=== PATIENT | male | born 1970 | race Caucasian/White ===

== ENCOUNTER 2020-07-10 20:35 | Emergency (ER) | payer BC ==
[~2020-07-10] VITALS: Ht 172.7 cm; Wt 84.8 kg
[2020-07-10 20:45] VITALS: BP_SYST 148
--- NOTE | 2020-07-10 20:57 | NUR ---
Patient to ER bed 8 to gown for evaluation. Side rails up.
--- NOTE | 2020-07-10 20:59 | NUR ---
Patient came to ER with family. C/O Epigastric pain x today. Patient states " abdominal pain since today around 1500 OM, no nausea, vomitting." Hx None A/O,X4,Epigastric pain, pain rate 2/10, vss.
--- NOTE | 2020-07-10 21:04 | NUR ---
ER at bedside examining patient.
[2020-07-10] MEDS ORDERED: NACL 0.9% 1,000 ML IV ONE (21:08)
[2020-07-10] MEDS ORDERED: PANTOPRAZOLE SODIUM 40 MG/VIAL (PROTONIX) IVP ONE (21:15)
--- NOTE | 2020-07-10 21:18 | NUR ---
Blood for labwork drawn from dna sequencing associate. Patient tolerated well.
[2020-07-10 21:34] LABS: BASOPHILS % (AUTO) 0.3 % (0.0-2.0); EOSINOPHILS % (AUTO) 0.4 % (0.0-4.0); HEMATOCRIT 45.6 % (36-54); HEMOGLOBIN 15.3 g/dL (14.0-18.0); LYMPHOCYTES # (AUTO) 1.3 K/uL (1.0-5.5); LYMPHOCYTES % (AUTO) 11.2 % (20.5-51.5); MEAN CORPUSCULAR HEMOGLOBIN 29 pg (27-31); MEAN CORPUSCULAR HGB CONC 34 % (32-36); MEAN CORPUSCULAR VOLUME 86 fL (79.0-98.0); MONOCYTES # (AUTO) 0.7 K/uL (0.0-1.0); MONOCYTES % (AUTO) 6.6 % (1.7-9.3); NEUTROPHILS # (AUTO) 9.1 K/uL (1.8-7.7); NEUTROPHILS % (AUTO) 81.5 % (40.0-70.0); PLATELET COUNT (AUTO) 226 K/uL (130-430); RED BLOOD CELL COUNT(AUTO) 5.28 MIL/uL (4.2-6.2); RED CELL DISTRIBUTION WIDTH 14.3 % (9.0-15.0); WHITE BLOOD COUNT (AUTO) 11.2 K/uL (4.8-10.8)
--- NOTE | 2020-07-10 21:37 | NUR ---
Patient transported to radiology via wheelchair, accompanied by RT.
[2020-07-10 21:48] LABS: CALCIUM 9.4 mg/dL (8.4-11.0); POTASSIUM 3.4 mmol/L (3.5-5.1)
[2020-07-10 21:54] LABS: ALBUMIN 3.8 g/dL (3.4-4.8); TOTAL BILIRUBIN 0.7 mg/dL (0.0-1.0)
[2020-07-10 22:41] VITALS: BP_SYST 114
--- NOTE | 2020-07-10 22:41 | NUR ---
Patient given written and verbal discharge instructions and verbalizes understanding. ER MD discussed with patient the results and treatment provided. Patient in stable condition. ID arm band removed. IV catheter removed intact and dressing applied, no active bleeding. Rx of Milk of magnesia given. Patient educated on pain management and to follow up with PMD. Pain Scale 1/10. Opportunity for questions provided and answered. Medication side effect fact sheet provided.
[2020-07-10 22:43] LABS: BILIRUBIN,URINE NEGATIVE (NEGATIVE); BLOOD, URINE NEGATIVE (NEGATIVE); COLOR,URINE YELLOW (YELLOW); GLUCOSE,URINE 2+ (NEGATIVE); KETONES,URINE TRACE (NEGATIVE); LEUKOCYTE ESTERASE ,URINE NEGATIVE (NEGATIVE); NITRITE, URINE NEGATIVE (NEGATIVE); PH,URINE 5.5 (5.0-8.0); PROTEIN URINE 1+ (NEGATIVE)
[2020-07-10 22:53] LABS: BACTERIA,URINE MODERATE /HPF (None Seen); CLARITY/URINE HAZY (CLEAR); RBC,URINE NONE SEEN /HPF (0-3); WBC,URINE 0-3 /HPF (0-3)
[2020-07-10 22:54] LABS: MUCUS,URINE 3+ /LPF (None Seen); URINE AMORPHOUS URATE 2+ /HPF (None Seen)
== END 2020-07-10 22:41 | disposition home or self-care (01) ==
LOC: SED 20:35
DX: K59.00 Constipation, unspecified (principal); R10.13 Epigastric pain
CPT/HCPCS: 36415; 74176; 80053; 81000; 83690; 85025; 87086; 96361; 96374; 99284; C9113; J7030

== ENCOUNTER 2023-05-08 23:03 | Emergency (ER) | payer SELFPAY ==
[~2023-05-08] VITALS: Ht 172.7 cm; Wt 83.9 kg
[2023-05-08 23:17] VITALS: BP_SYST 117
[2023-05-09] MEDS ORDERED: DIPHTH,PERTUSS(ACELL),TET VAC 0.5 ML VIAL (Tdap) I.M. ONE
[2023-05-09] MEDS ORDERED: cefTRIAXone 1 GM in LIDOCAINE 1%, 20 ML MDV 2.1 ML IM ONE ×2
[2023-05-09] MEDS ORDERED: NAPR-1172 PO (00:11)
[2023-05-09] MEDS ORDERED: PENI250T2 PO (00:11)
== END 2023-05-09 00:20 | disposition home or self-care (01) ==
LOC: SED 23:03
DX: S91.331A Puncture wound without foreign body, right foot, initial encounter (principal); Z79.899 Other long term (current) drug therapy; W45.0XXA Nail entering through skin, initial encounter; Y93.89 Activity, other specified; Y92.89 Other specified places as the place of occurrence of the external cause; Y99.8 Other external cause status
CPT/HCPCS: 99284; 90715; 96372; 90471; J0696; J2001